=== PATIENT | female | born 1945 | race Caucasian/White ===

== ENCOUNTER 2019-03-19 00:10 | Observation (INO) | payer MEDICARE ==
[2019-03-19] MEDS ORDERED: Ondansetron ODT 4 MG TAB PO PRN (02:05)
[2019-03-19] MEDS ORDERED: Acetaminophen 325 MG TAB PO PRN (02:05)
[2019-03-19] MEDS ORDERED: Acetaminophen 650 MG Suppository PR PRN (02:05)
[2019-03-19] MEDS ORDERED: Ondansetron PF 4 MG/2 ML Vial IVP PRN (02:05)
--- NOTE | 2019-03-19 02:59 | HP ---
PRIMARY CARE DOCTOR: CODE STATUS: Full code. TIME OF EVALUATION: 2:00 a.m. CHIEF COMPLAINT: Vertigo. HISTORY OF PRESENT ILLNESS: This is a 73-year-old female patient with past medical history of vertigo, hypothyroidism, hypertension. The patient came to the hospital after having severe dizziness around 1:00 p.m. with no clear triggers, no alleviating factors. The patient reported when the dizziness is on it is very severe, she is unable to function. She also had recent falling and becomes nauseous and has vomiting. She reported in the family they have the same problem, she does not remember the name of the disease. REVIEW OF SYSTEMS: CONSTITUTIONAL: No fever, chills, or generalized weakness. RESPIRATORY: No cough, sputum production, or shortness of breath. CARDIOVASCULAR: No chest pain or palpitation. GASTROINTESTINAL: No nausea, no vomiting, diarrhea, or abdominal pain. FENCE BUILDER: The patient has dizziness as described in HPI. No headache, feeling lightheaded. GENITOURINARY: No burning on urination. EXTREMITIES: No leg swelling. All other systems were reviewed and negative except for the findings mentioned above. PAST MEDICAL HISTORY: As mentioned in the HPI. PAST SURGICAL HISTORY: Cholecystectomy, appendectomy, tonsillectomy. PSYCHIATRIC HISTORY: No psych history. SOCIAL HISTORY: No drugs. No alcohol. No smoking history. FAMILY HISTORY: Vertigo in females. KNOWN ALLERGIES: Sulfa. REPORTED MEDICATIONS: 1. Levothyroxine. 2. Lisinopril. 3. Dyazide. 4. Verapamil. 5. Vitamin D. PHYSICAL EXAMINATION: VITAL SIGNS: On presentation, blood pressure 156/66 with heart rate 62, respiratory rate was 17, temperature 97.7, pain 0/10, oxygen saturation was 98% on room air. GENERAL APPEARANCE: The patient is alert, oriented, not in acute distress. HEENT: Eyes, normal conjunctivae. Moist oral mucosa. Anicteric. No JVD. RESPIRATORY: Bilateral air entry. No rales. No wheezes. Symmetric expansion. CARDIOVASCULAR: Normal rate, regular rhythm. No murmurs. No gallop. No edema. ABDOMEN: Soft, normal bowel sounds. MUSCULOSKELETAL: Baseline range of motion and strength. No tenderness. SKIN: Warm, intact. No pallor. No rash. No redness. EXTREMITIES: Peripheral pulses are present. Capillary refill seems to be intact. NEURO: No evidence of any new focal weakness. Cranial nerves seem to be intact. PSYCH: The patient is in good mood. No anxiety. Optimal judgment. LABORATORY DATA: EKG was reviewed. The patient has normal sinus rhythm with a rate of 67, NJ 152, QRS 76, QT corrected 448. Paperwork from transfer was reviewed. The patient's urine was checked and it was negative for infection. Troponin was negative. GFR 35, BUN 31, creatinine 1.63, sodium 144, potassium 4.7, chloride 107, carbon dioxide 21, calcium 10.6, bilirubin 0.5, alkaline phosphatase normal. LFTs were normal. White count 11, hemoglobin 15.7, granulocytes 54, platelet count 269. CT head was done, it was negative. ASSESSMENT AND PLAN: The patient will be placed in the hospital with following medical problems. 1. Vertigo, unclear etiology. We will rule out stroke. Also, we will do MRI. The patient reported that this runs in the female part of the family. She does not recall what diagnosis it is. From diagnosis, if nothing neurological appears, the patient may need evaluation with ENT. This might be done as outpatient to rule out this is like Meniere disease. 2. Deep venous thrombosis prophylaxis. 3. Uncontrolled hypertension. The patient presented with systolic in the 156. We will reconcile home medications. We will treat accordingly. 4. Hypothyroidism. Continue hormone replacement. Job ID: [id number]
[2019-03-19 04:20] VITALS: BMI 41.5
[2019-03-19 06:06] LABS: #Lymphocytes 1.2 thou/uL (1.20-3.40); #Monocytes 0.6 thou/uL (0.11-0.59); #Neutrophils 6.1 thou/uL (1.40-6.50); %Eosinophils 0.3 % (0.0-10.0); %Lymphocytes 14.7 % (21.0-51.0); %Monocytes 7.4 % (0.0-10.0); %Neutrophils 77.5 % (42.0-75.0); Hemoglobin 13.6 g/dL (12.0-16.0); Mean Corpuscular Hemoglobin 33.4 pg (27.0-31.0); Platelet Count 203 thou/uL (130-400); Red Blood Cell (RBC) Count 4.08 mill/uL (4.20-5.40); White Blood Cell (WBC) Count 7.9 thou/uL (4.8-10.8)
[2019-03-19 06:16] LABS: Anion Gap 15 mmol/L (10-20); BUN (Urea Nitrogen) 29 mg/dL (9.8-20.1); Calc. Creatinine Clearance 57 mL/min (70-130); Calcium 9.7 mg/dL (7.8-10.44); Carbon Dioxide 20 mmol/L (23-31); Cardiac Risk 3.1 (Less than 4.5); Chloride 109 mmol/L (98-107); Cholesterol 136 mg/dl (< 200 Desired); Estimated GFR-MDRD 40; Glucose 91 mg/dL (83-110); HDL Cholesterol 44 mg/dL (>60 Neg Risk); LDL Cholesterol, Calculated 78 mg/dL; Potassium 4.7 mmol/L (3.5-5.1); Sodium 139 mmol/L (136-145); Triglycerides 70 mg/dL (Less than 150)
--- NOTE | 2019-03-19 08:15 | MRI ---
Brain MRI without contrast: 03/19/2019 COMPARISON: None HISTORY: Vertigo, assess for acute infarction TECHNIQUE: Multiplanar multisequence MR imaging of the brain obtained without contrast FINDINGS: The diffusion weighted imaging demonstrates no evidence for acute infarction. The axial gra dient echo imaging demonstrates no evidence for intracranial hemorrhage. There are multiple subcentimeter foci of increased T2 and FLAIR signal within the periventricular and deep white matter, suggesting mild small vessel disease, left greater than right. There is mild degenerative change at the atlantoaxial interspace. Regional bone marrow signal intensi ty appears within normal limits. The imaged paranasal sinuses and mastoid air cells are well aerated. Arterial flow voids at the axial level of the skull base appear grossly unremarkable on the T2-weight ed imaging. IMPRESSION: No evidence for acute infarction or intracranial hemorrhage.
[2019-03-19] MEDS ORDERED: Enoxaparin Sodium 40 MG/0.4 ML SYRINGE SC SCH (09:00)
[2019-03-19 15:45] VITALS: BP 151/67; TEMP 98.4
--- NOTE | 2019-03-20 05:05 | DIS ---
DATE OF ADMISSION: 03/19/2019 DATE OF DISCHARGE: 03/19/2019 DISCHARGE DIAGNOSIS: Benign paroxysmal positional vertigo. HISTORY: This patient is a 73-year-old female, who has a history of hypothyroidism and hypotension as well as history of severe vertigo symptoms. The patient reports it has been a couple of years but in the past, she has had episodes of severe paroxysmal vertigo, which lead to her having some nausea and vomiting and then will resolve typically in a matter of hours. The patient experienced just one of the symptoms again and presented to the emergency department. The patient's initial workup was essentially unremarkable including CT of the head. She was subsequently admitted to observation for evaluation of possible cerebellar CVA. The patient underwent an MRI of the brain, which was unremarkable. Echocardiogram showed some evidence of diastolic dysfunction with an ejection fraction of about 75% and was otherwise essentially unremarkable. The patient's symptoms resolved spontaneously, and she was completely back to her baseline. She was up and walking the halls without any further difficulties. Her vital signs were normal with the exception of blood pressure at 151/67, and she was therefore felt to be stable for discharge to home. DISPOSITION: The patient is discharged to home. She is to have her usual diet and activity level. FOLLOWUP: She is to follow up with Dr. Cordova and she can return to the hospital should she have any problems prior to that time. Job ID: [id number] [facility]
== END 2019-03-19 17:00 | disposition home or self-care (01) ==
LOC: ERS 00:10 → INTOOBSV 01:37 → 2SE 01:37
PROVIDERS: ADMIT Hospitalist; ATTEND Hospitalist
DX: H81.10 Benign paroxysmal vertigo, unspecified ear (principal); I10 Essential (primary) hypertension; E03.9 Hypothyroidism, unspecified; Z79.899 Other long term (current) drug therapy; Z88.2 Allergy status to sulfonamides
CPT/HCPCS: 70551; 80048; 80061; 85025; 93306; 96372; 97139 ×5; 99284; G0378; 36415; J1650